=== PATIENT | male | born 1985 | race Hispanic/Latino ===

== ENCOUNTER 2018-10-26 14:26 | Emergency (ER) | payer OTHER, SELFPAY ==
--- OUTSIDE RECORDS SUMMARY | 2018-10-26 14:28 | XMS REPORT ---
:1985 Author Organization [facility] Address [address] [place] [address] Dr. Echols [address] [place] [id number] Care Team Providers Name Role Phone Unavailable Unavailable Unavailable Problems This patient has no known problems. Allergies, Adverse Reactions, Alerts This patient has no known allergies or adverse reactions. Medications This patient has no known medications.
--- OUTSIDE RECORDS SUMMARY | 2018-10-26 14:28 | XMS REPORT | Summary of Care ---
:1985 Author Organization [facility] Address [address] [place] [id number] Care Team Providers Name Role Phone Pcp, Patient Does Not Have A Primary Care Provider Reason for Referral Radiology Services (EVELINE) Status Reason Specialty Diagnoses / Referred By Referred To Procedures Contact Contact New Request Diagnostic Diagnoses Hypertension, unspecified type Didier, K Radiology Procedures XR CHEST 1 [place] [address] [place] [phone] Radiology Services (EVELINE) Status Reason Specialty Diagnoses / Referred By Referred To Procedures Contact Contact New Request Diagnostic Diagnoses Hypertension, unspecified type Didier, K Radiology Procedures XR CHEST 1 [place] [address] [place] [phone] Reason for Visit Reason Comments Hypertension 190/130 Auth/Cert Status Reason Specialty Diagnoses / Referred By Referred To Procedures Contact Contact Emergency Medicine Diagnoses [facility]ION [facility] [address] [place] [address] [place] [address] Encounter Details Date Type Department Care Team Description 10/17/2018 - Emergency [facility]-Emergency Didier, K Hypertension, 10/18/2018 Department Shy, PAC unspecified type [address] [place] [address] [address] [facility] (Primary Dx) [place], [place] [id number] [place] [address] [place] [address] Allergies No Known Allergiesdocumented as of this encounter (statuses as of 10/18/2018) Medications Not on filedocumented as of this encounter (statuses as of 10/18/2018) Active Problems Not on filedocumented as of this encounter (statuses as of 10/18/2018) Social History Tobacco Use Types Packs/Day Years Used Date Never Assessed Sex Assigned at Date Recorded Not on file Job Start Date Occupation Industry Not on file Not on file Not on file Travel History Travel Start Travel End No recent travel history available. documented as of this encounter Last Filed Vital Signs Vital Sign Reading Time Taken Comments Blood Pressure 139/105 10/18/2018 12:15 AM CDT Pulse 52 10/18/2018 12:15 AM CDT Temperature 36.8 C (98.2 F) 10/17/2018 9:42 PM CDT Respiratory Rate 17 10/18/2018 12:15 AM CDT Oxygen Saturation 97% 10/18/2018 12:15 AM CDT Inhaled Oxygen Concentration - - Weight 99.8 kg (220 lb) 10/17/2018 9:42 PM CDT Height - - Body Mass Index - - documented in this encounter Discharge Instructions AttachmentsThe following attachments cannot be sent through Care Everywhere.Eating Heart-Healthy Foods (Mongolian)documented in this encounter Plan of Treatment Health Maintenance Due Date Last Done Comments VARICELLA VACCINES (1 of 2 - 13+ 11/10/1996 2-dose series) DTaP,Tdap,and Td Vaccines (1 - 11/10/2002 Tdap) INFLUENZA VACCINE (#1) 2018 PNEUMOCOCCAL 0-64 YEARS COMBINED Aged Out No longer eligible based on SERIES patient's age to complete this topic documented as of this encounter Procedures Procedure Name Priority Date/Time Associated Diagnosis Comments XR CHEST 1 VW EVELINE 10/17/2018 10:28 Hypertension, Results for this PM CDT unspecified type procedure are in the results section. CBC WITH DIFFERENTIAL STAT 10/17/2018 10:13 Hypertension, Results for this PM CDT unspecified type procedure are in the results section. CBC WITH DIFF Routine 10/17/2018 10:13 Hypertension, Results for this PM CDT unspecified type procedure are in the results section. COMP. METABOLIC PANEL STAT 10/17/2018 10:13 Hypertension, Results for this (32464) PM CDT unspecified type procedure are in the results section. TROPONIN I STAT 10/17/2018 10:13 Hypertension, Results for this PM CDT unspecified type procedure are in the results section. MAGNESIUM STAT 10/17/2018 10:13 Hypertension, Results for this PM CDT unspecified type procedure are in the results section. EKG-12 LEAD Routine 10/17/2018 9:59 PM CDT NOTICE OF PRIVACY Routine 10/17/2018 9:39 PRACTICES PM CDT CONSENT/REFUSAL FOR Routine 10/17/2018 9:38 DIAGNOSIS AND PM CDT TREATMENT documented in this encounter Results XR CHEST 1 VW (10/17/2018 10:28 PM CDT) Specimen Impressions Performed At PACS/VR/DOSE No radiographic evidence of acute cardiopulmonary process. Elva Martinez MD., have reviewed this study and agree with the above report. Narrative Performed At EXAM: XR CHEST 1 VW PACS/VR/DOSE COMPARISON: None HISTORY: htn FINDINGS: Lungs: The lungs are underinflated, but clear. No pleural effusion or pneumothorax is identified. Heart/Mediastinum: The cardiomediastinal silhouette is accentuated by exam technique. Bones: No acute osseous abnormality is seen. Procedure Note [facility], Radiant Results Inft User - 10/17/2018 10:45 PM CDT EXAM: XR CHEST 1 VW COMPARISON: None HISTORY: htn FINDINGS: Lungs: The lungs are underinflated, but clear. No pleural effusion or pneumothorax is identified. Heart/Mediastinum: The cardiomediastinal silhouette is accentuated by exam technique. Bones: No acute osseous abnormality is seen. IMPRESSION No radiographic evidence of acute cardiopulmonary process. Elva Martinez MD., have reviewed this study and agree with the above report. Performing Organization Address City/State/Zipcode Phone Number PACS/VR/DOSE CBC WITH DIFFERENTIAL (10/17/2018 10:13 PM CDT) WBC 7.18 4.20 - 10.70 [facility] 10*3/L [facility] RBC 4.54 4.26 - 5.52 [facility] 10*6/L [facility] HGB 13.1 12.2 - 16.4 g/dL [facility] HCT 38.9 38.4 - 49.3 % [facility] MCV 85.7 81.7 - 95.6 fL [facility] MCH 28.9 26.1 - 32.7 pg [facility] MCHC 33.7 31.2 - 35.0 g/dL [facility] RDW-SD 40.2 38.5 - 51.6 fL [facility] RDW-CV 13.0 12.1 - 15.4 % [facility] PLT 262 150 - 328 [facility] 10*3/L [facility] MPV 8.9 (L) 9.8 - 13.0 fL [facility] NRBC/100 WBC 0.0 0.0 - 10.0 /100 [facility] WBCs [facility] NRBC x10^3 <0.01 10*3/L [facility] GRAN MAT (NEUT) % 63.6 % [facility] IMM GRAN % 0.70 % [facility] LYMPH % 26.6 % [facility] MONO % 7.5 % [facility] EOS % 1.0 % [facility] BASO % 0.6 % [facility] GRAN MAT x10^3(ANC) 4.57 1.99 - 6.95 [facility] 10*3/uL [facility] IMM GRAN x10^3 0.05 0.00 - 0.06 [facility] 10*3/uL [facility] LYMPH x10^3 1.91 1.09 - 3.23 [facility] 10*3/uL [facility] MONO x10^3 0.54 0.36 - 1.02 [facility] 10*3/uL [facility] EOS x10^3 0.07 0.06 - 0.53 [facility] 10*3/uL [facility] BASO x10^3 0.04 0.01 - 0.09 [facility] 10*3/uL [facility] Specimen Blood - VENOUS Performing Organization Address City/State/Zipcode Phone Number [facility] CLIA: [id number], [address] [place] [address] MAGNESIUM (10/17/2018 10:13 PM CDT) MAGNESIUM 1.9 1.7 - 2.4 mg/dL [facility] Specimen Blood - VENOUS Performing Organization Address City/State/Zipcode Phone Number [facility] CLIA: [id number], [address] [place] [address] TROPONIN I (10/17/2018 10:13 PM CDT) TROPONIN I <0.012 <=0.034 ng/mL [facility] Specimen Blood - VENOUS Narrative Performed At Equal or Less than 0.034 ng/ml---Normal [facility] Note: Cardiac troponin begins to rise 3-4 hours after the onset of ischemia. Repeat in 4-6 hours if the sample was drawn within 3-4 hours of the onset of the symptom and found normal. Between 0.035 and 0.120 ng/mL--- Borderline. Questionable myocardial injury or necrosis Note: Serial measurement may be necessary to confirm or exclude the diagnosis of myocardial injury or necrosis; Clinical correlation (symptoms, EKGs, imaging studies, and others) required; Repeat in 4-6 hours if clinically indicated. Equal or Higher than 0.121 ng/mL---Abnormal. Myocardial Injury or Necrosis Likely Biotin has been reported to cause a negative bias, interpret results relative to patient's use of biotin. Performing Organization Address City/State/Zipcode Phone Number [facility] CLIA: [id number], [address] [place] [address] COMP. METABOLIC PANEL (77251) (10/17/2018 10:13 PM CDT) NA 141 135 - 145 [facility] mmol/L [facility] K 3.6 3.5 - 5.0 [facility] mmol/L [facility] CL 102 98 - 108 mmol/L [facility] CO2 TOTAL 27 23 - 31 mmol/L [facility] AGAP 12 2 - 16 [facility] BUN 8 7 - 23 mg/dL [facility] GLUCOSE 120 (H) 70 - 110 mg/dL [facility] CREATININE 0.74 0.60 - 1.25 [facility] mg/dL [facility] TOTAL BILI 0.4 0.1 - 1.1 mg/dL [facility] CALCIUM 9.5 8.6 - 10.6 [facility] mg/dL [facility] T PROTEIN 9.2 (H) 6.3 - 8.2 g/dL [facility] ALBUMIN 4.9 3.5 - 5.0 g/dL [facility] ALK PHOS 83 34 - 122 U/L [facility] ALT(SGPT) 57 (H) 9 - 51 U/L [facility] AST(SGOT) 37 13 - 40 U/L [facility] eGFR Calculation 121.1 mL/min/1.73m2 [facility] [place] eGFR Calculation 146.7 mL/min/1.73m2 [facility] () [facility] Specimen Blood - VENOUS Narrative Performed At Association of Glomerular Filtration Rate (GFR) [facility] and Staging of Kidney Disease* + + +- + | GFR (mL/min/1.73 m2)| With Kidney Damage|Without Kidney Damage + + +- + |>90| Stage one| Normal + + +- + |60-89|S tage two| Decreased GFR + + +- + |30-59|S tage three| Stage three + + +- + |15-29|S tage four | Stage four + + +- + |<15 (or dialysis)|Stage five | Stage five + + +- + *Each stage assumes the associated GFR level has been in effect for at least three months.Stages 1 to 5, with or without kidney disease, indicate chronic kidney disease. Notes: Determination of stages one and two (with eGFR >59mL/min/1.73 m2) requires estimation of kidney damage for at least three months as defined by structural or functional abnormalities of the kidney, manifested by either: Pathological abnormalities or Markers of kidney damage (including abnormalities in the composition of the blood or urine or abnormalities in imaging tests). Performing Organization Address City/State/Zipcode Phone Number [facility] CLIA: [id number], [address] [place] [address] [facility] [address] documented in this encounter Visit Diagnoses Diagnosis Hypertension, unspecified type - Primary documented in this encounter Administered Medications Medication Order MAR Action Action Date Dose Rate Site aspirin chewable tablet 324 mg Given 10/17/2018 10:26 PM CDT 324 mg 324 mg, Oral, ONCE, 1 dose, 10/17/18 at 2315, Routine cloNIDine (CATAPRES) tablet 0.1 mg Given 10/17/2018 11:40 PM CDT 0.1 mg 0.1 mg, Oral, ONCE, 1 dose, Tu10/18/18 at 0045, STAT nitroglycerin (NITROSTAT) sublingual tablet Given 10/17/2018 10:27 PM CDT 0.4 mg 0.4 mg 0.4 mg, Sublingual, ONCE, 1 dose, 10/17/18 at 2330, EVELINE documented in this encounter"
[2018-10-26 15:42] LABS: Protime INR 1.1
[2018-10-26 15:43] LABS: Absolute Lymphocytes (CBC) 1.7 K/uL (0.7-4.9); Basophils % 0.5 % (0-1.3); Hematocrit 38.7 % (39.6-49.0); Lymphocytes % 20.6 % (15.3-44.8); MPV 7.5 fL (7.6-11.3); RBC Red Blood Cell Count 4.51 M/uL (4.33-5.43)
--- NOTE | 2018-10-26 15:48 | RAD REPORT ---
EXAM DESCRIPTION: RAD - Chest Single View - 10/26/2018 3:42 pm CLINICAL HISTORY: CHEST PAIN Chest pain. COMPARISON: No comparisons FINDINGS: Portable technique limits examination quality. The lungs are grossly clear. The heart is normal in size. No displaced fractures. IMPRESSION: No acute intrathoracic process suspected.
[2018-10-26 15:59] LABS: ALT/SGPT 73 U/L (12-78); AST/SGOT 37 U/L (15-37); Albumin 4.3 g/dL (3.4-5.0); Alkaline Phosphatase 80 U/L (45-117); BUN Blood Urea Nitrogen 9 mg/dL (7-18); Bicarbonate 25 mmol/L (21-32); Bilirubin Direct 0.1 mg/dL (0-0.2); Bilirubin Total 0.5 mg/dL (0.2-1.0); Glucose Level 78 mg/dL (74-106); Magnesium 2.2 mg/dL (1.8-2.4); NT PRO-BNP 122 pg/mL (<125); Potassium 3.9 mmol/L (3.5-5.1); Protein, Total 8.9 g/dL (6.4-8.2); Sodium Level 139 mmol/L (136-145); Troponin (Emerg Dept Use Only) < 0.02 ng/mL (0.0-0.045)
--- NOTE | 2018-10-26 16:08 | EDPHYS ---
Physician Documentation [facility] Name: Clint Rebollar Jr Age: 32 yrs Sex: Male : 1985 Arrival Date: 10/26/2018 Time: 14:29 Bed 23 Private MD: Scottie Ruth H ED Physician Luis Alberto Mcgregor HPI: 10/26 15:01 This 32 yrs old Male presents to ER via Ambulatory with complaints of High pm1 Blood Pressure, Right Shoulder Pain. 15:01 The patient has elevated blood pressure and discovered this at home. Onset: The pm1 symptoms/episode began/occurred HTN for at least 1 month. Went to PCP, Dr Ruth, about two weeks ago and his metoprolol was increased. Blood pressure was not improved with the increase in dosage so he followed up with his PCP and the metoprolol was returned to its dosage of 50 mg and clonidine BID was added. 15:01 Modifying factors: The symptoms are aggravated by right shoulder pain is aggravated by pm1 movement of right arm. Associated signs and symptoms: Pertinent positives: chest pain, Pertinent negatives: headache, nausea, vomiting. Severity of symptoms: in the emergency department the blood pressure is unchanged. The patient has been recently seen by a physician: the patient's primary care provider, Dr. Ruth. Historical: - Allergies: 14:41 No Known Allergies; tw2 - Home Meds: 14:41 glimepiride 2 mg Oral tab 1 tab twice a day [Active]; metformin 500 mg Oral Tb24 1 tab tw2 2 times per day [Active]; clonidine HCl 0.1 mg Oral tab 1 tab 2 times per day [Active]; - PMHx: 14:41 Hypertension; Diabetes - NIDDM; tw2 - PSHx: 14:41 Right wrist; tw2 - Immunization history:: Adult Immunizations. - Social history:: Smoking status: . - Ebola Screening: : Patient denies travel to an Ebola-affected area in the 21 days before illness onset. ROS: 15:01 Constitutional: Negative for fever, chills, and weight loss, Eyes: Negative for injury, pm1 pain, redness, and discharge, ENT: Negative for injury, pain, and discharge, Neck: Negative for injury, pain, and swelling, Respiratory: Negative for shortness of breath, cough, wheezing, and pleuritic chest pain. 15:01 Abdomen/GI: Negative for abdominal pain, nausea, vomiting, diarrhea, and constipation, Back: Negative for injury and pain. 15:01 Skin: Negative for injury, rash, and discoloration, Neuro: Negative for headache, weakness, numbness, tingling, and seizure. 15:01 Cardiovascular: Positive for chest pain, Negative for edema, orthopnea, palpitations. 15:01 MS/extremity: Positive for pain, of the right scapular area, Negative for decreased range of motion, deformity. Exam: 15:01 Constitutional: This is a well developed, well nourished patient who is awake, alert, pm1 and in no acute distress. Head/Face: Normocephalic, atraumatic. Neck: Trachea midline, no thyromegaly or masses palpated, and no cervical lymphadenopathy. Supple, full range of motion without nuchal rigidity, or vertebral point tenderness. No Meningismus. Chest/axilla: Normal chest wall appearance and motion. Nontender with no deformity. No lesions are appreciated. Cardiovascular: Regular rate and rhythm with a normal S1 and S2. No gallops, murmurs, or rubs. Normal PMI, no JVD. No pulse deficits. Respiratory: Lungs have equal breath sounds bilaterally, clear to auscultation and percussion. No rales, rhonchi or wheezes noted. No increased work of breathing, no retractions or nasal flaring. Abdomen/GI: Soft, non-tender, with normal bowel sounds. No distension or tympany. No guarding or rebound. No evidence of tenderness throughout. Back: No spinal tenderness. No costovertebral tenderness. Full range of motion. Skin: Warm, dry with normal turgor. Normal color with no rashes, no lesions, and no evidence of cellulitis. 15:01 Musculoskeletal/extremity: Extremities: grossly normal except: noted in the right scapular area: tenderness. 15:01 Neuro: Orientation: is normal, Motor: is normal, moves all fours. Vital Signs: 14:38 BP 169 / 102; Pulse 77; Resp 17; Temp 98.3(O); Pulse Ox 100% on R/A; Weight 95.71 kg tw2 (M); Height 5 ft. 6 in. (167.64 cm); Pain 6/10; 16:03 BP 143 / 101; Pulse 75; Resp 16; Pulse Ox 98% on R/A; iw 14:38 Body Mass Index 34.06 (95.71 kg, 167.64 cm) tw2 MDM: 14:43 Patient medically screened. pm1 15:14 Data reviewed: vital signs. Data interpreted: Pulse oximetry: on room air is 100 %. pm1 Interpretation: normal. 16:05 Counseling: I had a detailed discussion with the patient and/or guardian regarding: the pm1 historical points, exam findings, and any diagnostic results supporting the discharge/admit diagnosis, lab results, radiology results, the need for outpatient follow up, to return to the emergency department if symptoms worsen or persist or if there are any questions or concerns that arise at home. 10/26 15:00 Order name: Basic Metabolic Panel; Complete Time: 16:03 pm10/26 15:00 Order name: CBC with Diff; Complete Time: 15:56 pm1 10/26 15:00 Order name: LFT's; Complete Time: 16:03 pm10/26 15:00 Order name: Magnesium; Complete Time: 16:03 pm10/26 15:00 Order name: NT PRO-BNP; Complete Time: 16:03 pm10/26 15:00 Order name: PT-INR; Complete Time: 15:56 pm1 10/26 15:00 Order name: Troponin (emerg Dept Use Only); Complete Time: 16:03 pm1 10/26 15:00 Order name: XRAY Chest (1 view) pm1 10/26 15:00 Order name: EKG; Complete Time: 15:02 pm10/26 15:00 Order name: Cardiac monitoring; Complete Time: 15:19 pm10/26 15:00 Order name: EKG - Nurse/Tech; Complete Time: 15:19 pm10/26 15:00 Order name: IV Saline Lock; Complete Time: 15:19 pm10/26 15:00 Order name: Labs collected and sent; Complete Time: 15:19 pm10/26 15:00 Order name: O2 Per Protocol; Complete Time: 15:19 pm10/26 15:00 Order name: O2 Sat Monitoring; Complete Time: 15:19 pm1 Administered Medications: 16:15 Drug: TORadol 30 mg Route: IVP; Site: right antecubital; 16:40 Follow up: Response: No adverse reaction; Pain is decreased iw 16:15 Drug: Flexeril 10 mg Route: PO; iw 16:40 Follow up: Response: No adverse reaction; Pain is decreased iw Disposition: 17:38 Co-signature as Attending Physician, Luis Alberto Mcgregor MD. rn Disposition: 10/26/18 16:06 Discharged to Home. Impression: Essential (primary) hypertension, Pain in right shoulder, Chest pain, unspecified. - Condition is Stable. - Discharge Instructions: Nonspecific Chest Pain, Hypertension, Shoulder Pain, How to Take Your Blood Pressure, Lphr-hi-Ears, DASH Eating Plan, Managing Your Hypertension. - Prescriptions for Cyclobenzaprine 10 mg Oral Tablet - take 1 tablet by ORAL route every 8 hours As needed; 30 tablet. Diclofenac Sodium 75 mg Oral Tablet Sustained Release - take 1 tablet by ORAL route 2 times per day; 30 tablet. - Medication Reconciliation Form, Thank You Letter, Antibiotic Education, Prescription Opioid Use, Work release form form. - Follow up: Emergency Department; When: As needed; Reason: Worsening of condition. Follow up: Private Physician; When: 2 - 3 days; Reason: Recheck today's complaints, Continuance of care, Re-evaluation by your physician. - Problem is new. - Symptoms have improved. Signatures: Dispatcher [employer] Yamileth Leal RN RN iw Nieto, Roman, MD MD rn Marinas, Patrick, [employer] B[employer]OD B[facility] pm1 Eveline Hummel RN RN tw2 Corrections: (The following items were deleted from the chart) 16:41 16:06 10/26/2018 16:06 Discharged to Home. Impression: Essential (primary) iw hypertension; Pain in right shoulder; Chest pain, unspecified. Condition is Stable. Forms are Work release form, Medication Reconciliation Form, Thank You Letter, Antibiotic Education, Prescription Opioid Use. Follow up: Emergency Department; When: As needed; Reason: Worsening of condition. Follow up: Private Physician; When: 2 - 3 days; Reason: Recheck today's complaints, Continuance of care, Re-evaluation by your physician. Problem is new. Symptoms have improved. pm1
--- NOTE | 2018-10-26 16:08 | ER ---
Nurse's Notes [facility] Name: Clint Rebollar Jr Age: 32 yrs Sex: Male : 1985 Arrival Date: 10/26/2018 Time: 14:29 Bed 23 Private MD: Scottie Ruth H Diagnosis: Essential (primary) hypertension;Pain in right shoulder;Chest pain, unspecified Presentation: 10/26 14:36 Presenting complaint: Patient states: my blood pressure was elevated it was 190/120, tw2 right shoulder and back pain, its more of a back shoulder blade pain that started yesterday, when i burp i feel it in my back to the front of my chest. Transition of care: patient was not received from another setting of care. Onset of symptoms was October 26, 2018. Risk Assessment: Do you want to hurt yourself or someone else? Patient reports no desire to harm self or others. Initial Sepsis Screen: Does the patient meet any 2 criteria? No. Patient's initial sepsis screen is negative. Does the patient have a suspected source of infection? No. Patient's initial sepsis screen is negative. Care prior to arrival: None. 14:36 Method Of Arrival: Ambulatory tw2 14:36 Acuity: YANY 3 tw2 Triage Assessment: 14:39 General: Appears obese, well groomed, Behavior is calm, cooperative, appropriate for tw2 age. Pain: Complains of pain in right scapular area. Historical: - Allergies: 14:41 No Known Allergies; tw2 - Home Meds: 14:41 glimepiride 2 mg Oral tab 1 tab twice a day [Active]; metformin 500 mg Oral Tb24 1 tab tw2 2 times per day [Active]; clonidine HCl 0.1 mg Oral tab 1 tab 2 times per day [Active]; - PMHx: 14:41 Hypertension; Diabetes - NIDDM; tw2 - PSHx: 14:41 Right wrist; tw2 - Immunization history:: Adult Immunizations. - Social history:: Smoking status: . - Ebola Screening: : Patient denies travel to an Ebola-affected area in the 21 days before illness onset. Screenin:30 Abuse screen: Denies threats or abuse. Denies injuries from another. Nutritional iw screening: No deficits noted. Tuberculosis screening: No symptoms or risk factors identified. Fall Risk IV access (20 points). Assessment: 15:00 General: Appears in no apparent distress. Behavior is calm, cooperative. Pain: iw Complains of pain in back and right scapular area. Neuro: Level of Consciousness is awake, alert, obeys commands, Oriented to person, place, time, situation, Moves all extremities. Full function. Cardiovascular: Capillary refill < 3 seconds in bilateral fingers Patient's skin is warm and dry. Respiratory: Respiratory effort is even, unlabored, Respiratory pattern is regular, symmetrical. GI: No signs and/or symptoms were reported involving the gastrointestinal system. Derm: Skin is intact, is healthy with good turgor. Musculoskeletal: Range of motion: intact in all extremities. 16:03 Reassessment: Patient appears in no apparent distress at this time. Patient and/or iw family updated on plan of care and expected duration. Pain level reassessed. Patient is alert, oriented x 3, equal unlabored respirations, skin warm/dry/pink. 16:32 Reassessment: Patient appears in no apparent distress at this time. Patient and/or iw family updated on plan of care and expected duration. Pain level reassessed. Patient is alert, oriented x 3, equal unlabored respirations, skin warm/dry/pink. ELSA Garzon speaking to pt about discharge instructions. Vital Signs: 14:38 BP 169 / 102; Pulse 77; Resp 17; Temp 98.3(O); Pulse Ox 100% on R/A; Weight 95.71 kg tw2 (M); Height 5 ft. 6 in. (167.64 cm); Pain 6/10; 16:03 BP 143 / 101; Pulse 75; Resp 16; Pulse Ox 98% on R/A; iw 14:38 Body Mass Index 34.06 (95.71 kg, 167.64 cm) tw2 ED Course: 14:29 Patient arrived in ED. mr 14:29 Scottie Ruth DO is Private Physician. mr 14:38 Triage completed. tw2 14:38 Arm band placed on. tw2 14:42 Duran Mcgarry [facility]. pm1 14:42 Luis Alberto Mcgregor MD is Attending Physician. pm1 14:44 Yamileth Alan RN is Primary Nurse. iw 15:14 Missed attempt(s): 20 gauge in right antecubital area. rv 15:18 Placed in gown. Bed in low position. Call light in reach. Side rails up X 1. Side rails jp3 up X2. Verbal reassurance given. digital content coordinator on. Pulse ox on. NIBP on. 15:18 Initial lab(s) drawn, by me, sent to lab. Inserted saline lock: 22 gauge in left jp3 antecubital area, using aseptic technique. Blood collected. 15:27 EKG done, by senior laboratory technician. reviewed by Duran Mcgarry NP. 3 15:43 XRAY Chest (1 view) In Process Unspecified. EDMS 16:40 No provider procedures requiring assistance completed. IV discontinued, intact, iw bleeding controlled, No redness/swelling at site. Pressure dressing applied. Administered Medications: 16:15 Drug: TORadol 30 mg Route: IVP; Site: right antecubital; iw 16:40 Follow up: Response: No adverse reaction; Pain is decreased iw 16:15 Drug: Flexeril 10 mg Route: PO; iw 16:40 Follow up: Response: No adverse reaction; Pain is decreased iw Outcome: 16:06 Discharge ordered by MD. pm1 16:40 Discharged to home ambulatory, with family. iw 16:40 Condition: good 16:40 Discharge instructions given to patient, family, Instructed on discharge instructions, follow up and referral plans. medication usage, Demonstrated understanding of instructions, follow-up care, medications, Prescriptions given X 2. 16:41 Patient left the ED. iw Signatures: Dispatcher [employer] EDIL Leesa Villalobos Irene, RN RN iw Duran Mcgarry NP PARTS PRODUCT ANALYST pm1 Eveline Hummel RN RN 2 Kaylan Akins 3 Jameson Wyatt RN RN rv Scotty Groves jp3
[2018-10-26] MEDS ORDERED: KETOROLAC 30 MG/ML INJ ONE (16:11)
[2018-10-26] MEDS ORDERED: CYCLOBENZAPRINE 10 MG TAB ONE (16:11)
--- NOTE | 2018-10-27 07:35 | EKG ---
Test Date: 2018-10-26 Test Time: 15:21:59 Collection Systems Administrator: MELODIE MEASUREMENT RESULTS: Intervals: Rate: 71 AL: 160 QRSD: 84 QT: 392 QTc: 425 Gallant: P: 30 AL: 160 QRS: 44 T: 23 INTERPRETIVE STATEMENTS: Normal sinus rhythm Nonspecific T wave abnormality Abnormal ECG Compared to ECG 12/29/2010 23:15:59 No significant changes Electronically Signed On 10-27-18 07:35:05 CDT by Chase Guzman
== END 2018-10-26 16:41 | disposition home or self-care (01) ==
LOC: ER 14:26
DX: I10 Essential (primary) hypertension (principal); M25.511 Pain in right shoulder; E11.9 Type 2 diabetes mellitus without complications
CPT/HCPCS: 36415; 71045; 80048; 80076; 83735; 83880; 84484; 85025; 85610; 93005; 96374; 99284